=== PATIENT | female | born 1955 | race Caucasian/White ===

== ENCOUNTER 2020-06-10 16:11 | Emergency (ER) | payer MEDICARE, OTHER, SELFPAY ==
[2020-06-10] VITALS (26 sets, daily range): BP systolic 117–132; BP diastolic 64–82; PULSE 78–88; RESP 18–26; TEMP 38; O2SAT 91–99
--- NOTE | ~2020-06-10 | CT_ITS ---
EXAMINATION:CT chest wo con DATE: 06/10/2020 18:02 INDICATION: Shortness of breath and fever. TECHNIQUE: Computed tomography (CT) of the chest was performed without intravenous contrast. Automate d exposure control and iterative reconstruction technique were employed. The dose-length product (DLP ) was 229.58 mGy-cm. COMPARISON: CT abdomen and pelvis 06/26/2017 FINDINGS: The lung volumes are small. There is mild atelectasis in right lung with an inferior predom inance. There are scattered groundglass opacities and nodules in left lung. There is mild atelectasis in inferior left lung. No pleural effusion. The heart size is normal. No pericardial effusion. There are thyroid nodules measuring up to 8 mm, likely not clinically significant. There are changes of ch olecystectomy. There is a gastrostomy tube in expected position. 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 Th ere is moderate thoracic spondylosis and severe cervical spondylosis. IMPRESSION: 1. Diffuse left lung disease, consistent with pneumonia. 2. Small lung volumes with mild atelectasis at the lung bases. Reviewed, dictated and finalized at location A. THESIOLOGY FELLOW
--- NOTE | 2020-06-10 17:19 | ED.NAVMDI ---
HPI - Nausea/Vomiting/Diarrhea General Chief complaint: Nausea/Vomiting/Diarrhea Stated complaint: Nausea, Fever, Chills Time Seen by Provider: 06/10/20 17:09 Source: patient Mode of arrival: ambulatory Limitations: no limitations History of Present Illness HPI Narrative: Patient is a 64-year-old female complaining of nausea vomiting, low blood sugar and fever that started today. Patient denies any dizziness, headache, chest pain, shortness of breath, abdominal pain, diarrhea, or urinary symptoms. 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 Related Data Home Medications Medication Instructions Recorded Confirmed alprazolam 0.25 mg tablet 0.25 mg PO DAILY 03/30/20 cetirizine 10 mg capsule 10 mg PO DAILY 03/30/20 hydrochlorothiazide 25 mg tablet 25 mg PO EVERY OTHER DAY 03/30/20 ondansetron 4 mg disintegrating 4 mg PO Q8H 03/30/20 tablet pantoprazole 40 mg granules 40 mg PO DAILY 03/30/20 delayed-release for susp in packet paroxetine HCl 10 mg tablet 10 mg PO DAILY 03/30/20 prednisone 5 mg tablet 1,000 mg PO [id number] tablet 03/30/20 [id number]-PF 1 drp OPHTHALMIC (EYE) TID 06/10/20 [Refresh Optive Ezra-3 (PF)] Allergies Allergy/AdvReac Type Severity Reaction Status Date / Time ciprofloxacin Allergy Severe Swelling Verified 02/04/19 08:10 erythromycin base Allergy Unknown Unknown Verified 02/04/19 08:10 coconut Allergy Hives Verified 06/10/20 16:35 Review of Systems Review of Systems: All systems reviewed & are unremarkable except as noted in HPI and below Constitutional: Constitutional: Denies body ache(s), Denies excessive sweating, Denies fatigue, Denies headache(s), Denies lethargy, Denies malaise, Denies weakness and Denies weight loss Eyes: Eyes: Denies blurry vision, Denies change in vision and Denies loss of vision ENT: Denies dizziness, Denies ear discharge, Denies headache(s), Denies lip swelling, Denies epistaxis, Denies nasal congestion, Denies neck pain, Denies throat swelling and Denies tongue swelling Cardiovascular: Cardiovascular: Denies chest pain, Denies chest pain at rest, Denies chest pain with activity, Denies diaphoresis, Denies rapid heart rate, Denies edema, Denies irregular heart rhythm, Denies lightheadedness, Denies palpitations, Denies dyspnea and Denies dyspnea on exertion Respiratory: Respiratory: Denies chest congestion, Denies cough, Denies hemoptysis, Denies dyspnea and Denies dyspnea on exertion Gastrointestinal: Gastrointestinal: Denies abdominal pain, Denies melena, Denies hematochezia, Denies diarrhea and Denies hematemesis Musculoskeletal: Musculoskeletal: Denies abnormal gait, Denies deformity, Denies joint swelling, Denies limited range of motion, Denies neck pain and Denies numbness Neurologic: Denies Abnormal speech present, Denies abnormal gait, Denies confusion, Denies dizziness, Denies headache(s), Denies focal weakness, Denies loss of vision, Denies numbness, Denies Other visual disturbances, Denies Sensory deficit (Neuro) and Denies weakness Psychiatric: Psychiatric: Denies confusion, Denies depression, Denies auditory hallucinations, Denies homicidal ideation and Denies suicidal ideation Endocrine: Endocrine: Denies cold intolerance, Denies excessive sweating, Denies fatigue, Denies heat intolerance and Denies palpitations Hematologic/Lymphatic: Hematologic/Lymphatic: Denies easy bleeding and Denies easy bruising Allergic/Immunologic: Allergic/Immunologic: Denies lip swelling, Denies throat swelling and Denies tongue swelling [facility] Social History Social History (Updated 03/30/20 @ 10:04 by Tamy Courtney) Smoking status: Former smoker Tobacco type: cigarettes Second hand tobacco smoke exposure: No Smoking end date: 10/03/09 Exam Const: General: cooperative, healthy appearing, comfortable, no acute distress, well devel
[2020-06-10 17:31] LABS: Glucose Point of Care 99 (65-105)
[2020-06-10 17:36] LABS: Basophils Absolute Auto 0.1 K/mm3 (0.0-0.1); Basophils Percent Auto 0.4 % (0.2-1.2); Eosinophils Percent Auto 0.2 % (0-4.4); Hematocrit 39.5 % (37.0-47.0); Hemoglobin 13.6 g/dL (12.0-15.0); Immature Granulocyte Absolute 0.07 K/mm3 (0.00-0.031); Immature Granulocyte Percent A 0.4 % (0-0.5); Lymphocytes Absolute Auto 2.05 K/mm3 (0.9-3.2); Lymphocytes Percent Auto 12.2 % (18.3-44.2); Mean Corpuscular HGB Conc 34.4 g/dl (32-36); Mean Corpuscular Hemoglobin 31.4 pg (26-34); Mean Corpuscular Volume 91.2 fl (80-100); Mean Platelet Volume 10.1 fl (7.4-10.4); Monocytes Absolute Auto 1.2 K/mm3 (0.1-0.6); Neutrophils Absolute Auto 13.4 K/mm3 (1.3-6.7); Neutrophils Percent Auto 79.8 % (45.5-73.1); Platelet Count Result 323 k/mm3 (150-375); Red Blood Count 4.33 M/mm3 (4.2-5.4); White Blood Count 16.8 K/mm3 (4.5-10.0)
[2020-06-10 17:45] LABS: INR 0.9; Prothrombin Time 13.1 Seconds (11.1-14.7)
[2020-06-10 17:46] LABS: Partial Thromboplastin Time 29.6 SECONDS (22.3-36.8)
[2020-06-10 17:48] LABS: Lactic Acid Reflex 0.8 mmol/L (0.7-2.1)
[2020-06-10 17:50] LABS: Alanine Aminotransferase 17 U/L (4-35); Albumin Level 3.9 g/dL (3.5-5.1); Alkaline Phosphatase 78 U/L (38-126); Anion Gap 6 mmol/L (8-16); Aspartate Amino Transferase 34 U/L (14-36); Bilirubin,Total 0.6 mg/dL (0.2-1.3); Blood Urea Nitrogen 20 mg/dL (7-17); CRP 1.2 mg/dL (<1.0); Calcium 9.2 mg/dL (8.4-10.2); Carbon Dioxide 34 mmol/L (22-30); Chloride 96 mmol/L (98-107); Estimated CRCL calculation 77 ml/min; Estimated Glomerular Filt Rate > 60; Glucose 96 mg/dL (65-105); Potassium 3.4 mmol/L (3.4-5.0); Sodium 136 mmol/L (137-145)
[2020-06-10] MEDS: LACTATED RINGERS 1,000 ML 999 ML IV CONT (18:07)
[2020-06-10] MEDS: ACETAMINOPHEN 325 MG TABLET 650 MG PO (18:08)
[2020-06-10 18:51] LABS: Add Urine Microscopic? NO; Appearance Urine Clear (Clear); Bilirubin Urine Negative (Negative); Blood Urine Negative (Negative); Color Urine Straw (Yellow); Glucose Urine UA Negative (Negative); Ketones Urine Negative (Negative); Leukocyte Esterase Ur Negative LEU/UL (Negative); Nitrate Urine Negative (Negative); Protein Urine Negative (Negative); Specific Grav Ur 1.011 (1.001-1.035); Urobilinogen Urine Negative mg/dL (<2.0)
--- NOTE | 2020-06-10 23:05 | PC.NURSE ---
report called to Varinder León.
--- NOTE | 2020-06-10 23:12 | PC.NURSE ---
Addendum entered by Melody Torres 06/11/20 00:06: [id number]: Called [facility] to transport. Accepted. ETA 0000. cancelled Merino at 0005 (spoke with Arjun). Original Note: CALLED [facility] TO TRANSPORT TO [facility] [id number]. ETA 0100
[2020-06-10] MEDS: LACTATED RINGERS 1,000 ML 125 ML IV CONT (23:34)
[2020-06-12 19:06] LABS: SARS-CoV-2 RNA PCR Negative
== END 2020-06-11 00:10 | disposition short-term general hospital (02) ==
PROVIDERS: Emergency Provider Emergency Medicine; PCP Internal Medicine; Visit Provider Internal Medicine
DX: J18.9 Pneumonia, unspecified organism (principal); R11.2 Nausea with vomiting, unspecified; Z20.822 Contact with and (suspected) exposure to COVID-19; G72.49 Other inflammatory and immune myopathies, not elsewhere classified; Z87.891 Personal history of nicotine dependence
CPT/HCPCS: 36415; 71250; 80053; 81003; 82948; 83605; 85025; 85610; 85730; 86140; 87040; 96365; 99285; A9270; C9803; J0692; J7120; U0003